=== PATIENT | female | born 1945 | race Caucasian/White ===

== ENCOUNTER 2017-01-28 10:54 | Emergency (ER) | payer MEDICARE, OTHER ==
[~2017-01-28] VITALS: Ht 162.6 cm; Wt 70.0 kg
[~2017-01-28 10:54] MED LIST: LOSA100T PO; METF500T PO; REST0.05 EACH EYE
[2017-01-28 10:56] VITALS: BP 188/80; PULSE 92; RESP 20; TEMP 97.8; O2SAT 99
--- NOTE | 2017-01-28 11:18 | PD ---
Physical Exam Date Seen by Provider: Jan 28, 2017 Time Seen by Provider: 11:13 Narrative 71 Y/O female with Left Knee Pain for 2 weeks[address] Currently scheduled with Dr. Barber at the end of the month. Patient fell 3 weeks ago which started symptoms. Patient now having pain in calf and swelling behind knee into foot. Admits to Knee locking up. Patient was told she could not see anyone else sooner than the end of the month. Pain is worse with weight bearing. Pain 4/ 10 at rest. 9/10 with weight bearing. V/S Stable. Patient awaiting bed placement. Data Data Last Documented VS Vital Signs Date Time Temp Pulse Resp B/P Pulse Ox O2 Delivery O2 Flow Rate FiO2 01/28/17 10:56 97.8 92 20 188/80 99 Room Air [facility] Medical Record Reviewed: Yes Supervised Visit with KURT: Yes Condition: Stable Wm Garay Jan 28, 2017 11:18
--- NOTE | 2017-01-28 13:13 | PD ---
HPI Chief Complaint: Pain: Acute or Chronic Time Seen by Provider: 13:05 Travel History International Travel<30 days: No Contact w/Intl Traveler<30days: No Traveled to known affect area: No History of Present Illness HPI 71-year-old female presents for evaluation of left leg pain. She reports that 3 weeks ago she tripped on some landscaping material and fell, landing on her right knee. She started to develop some pain in the posterior left calf/knee region since then which has been progressively getting worse. Pain is an aching pain that is worse when walking. Ibuprofen, ice pack seemed to help some with the pain. She made an appointment with orthopedist Dr. Claros however she was unable to get an appointment until the end of January and so she came here for evaluation. Denies any numbness/tingling/weakness, recent travel , recent surgery, history of DVT. She has no other complaints. 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)) Cardiovascular Problems: No Diabetes: Yes Endocrine: No Genitourinary: No Hepatitis: Yes (C) Hiatal Hernia: No Immune Disorder: No Musculoskeletal: Yes (ROTATOR CUFF PROBLEM) Neurologic: No Psychiatric: No Reproductive: Yes (H.P.B.) Respiratory: No Thyroid Disease: No Past Surgical History Abdominal Surgery: Yes (HYSTERECTOMY) AICD: No Eye Surgery: Yes (CATARACT REMOVAL) Gynecologic Surgery: Yes Joint Replacement: No Pacemaker: No Social History Tobacco Use: No Allergies-Medications (Allergen,Severity, Reaction): Coded Allergies: Darvocet-N 100 (Verified Allergy, Severe, Rash, 01/28/17) Sulfa (Unverified Allergy, Severe, SHORT OF BREATH, 01/28/17) Antifungal Antibiotics (Unverified Allergy, Intermediate, RASH, 01/28/17) Reported Meds & Prescriptions Reported Meds & Active Scripts Active Tramadol (Tramadol HCl) 50 Mg Tab 50 Mg PO Q6H PRN Restasis Opth 0.05% (Cyclosporine Opth 0.05%) 0.05% Emul 1 Drop EACH EYE BID Reported Metformin (Metformin HCl) 500 Mg Tab 500 Mg PO BIDPC With meals Losartan (Losartan Potassium) 100 Mg Tab 100 Mg PO DAILY Review of Systems Except as stated in HPI: all other systems reviewed are Neg Physical Exam Narrative GENERAL: Well-developed well-nourished female in no acute distress SKIN: Warm and dry. No bruising or soft tissue swelling HEAD: Atraumatic. Normocephalic. EYES: Pupils equal and round. No scleral icterus. No injection or drainage. ENT: No nasal bleeding or discharge. Mucous membranes pink and moist. NECK: Trachea midline. No JVD. CARDIOVASCULAR: Regular rate and rhythm. No murmur appreciated. RESPIRATORY: No accessory muscle use. Clear to auscultation. Breath sounds equal bilaterally. GASTROINTESTINAL: Abdomen soft, non-tender, nondistended. MUSCULOSKELETAL: No obvious deformities. There is no lower extremity tibial/ pedal edema. There is some tenderness to palpation to the posterior proximal left calf region. The Achilles tendon is intact and nontender. The patient intends full range of motion at the hips, knees, ankles bilaterally. There is no left knee effusion. 2+ dorsalis pedis and posterior tibial pulses bilaterally. NEUROLOGICAL: Awake and alert. No obvious cranial nerve deficits. Motor grossly within normal limits. Normal speech. Data Data Last Documented VS Vital Signs Date Time Temp Pulse Resp B/P Pulse Ox O2 Delivery O2 Flow Rate FiO2 01/28/17 10:56 97.8 92 20 188/80 99 Room Air Orders Tibia/Fibula (Ap/Lat) (01/28/17 ) Us Leg Venous Doppler (01/28/17 13:12) Ketorolac Inj (Toradol Inj) (01/28/17 13:15) MDM Medical Decision Making Medical Screen Exam Complete: Yes Emergency Medical Condition: Yes Medical Record Reviewed: Yes Differential Diagnosis Calf strain, tear, DVT, ligamentous disruption, meniscal disruption, proximal fibular fracture Narrative Course This is a 71-year-old female who fell 3 weeks ago and has had progressive pain in her left calf region since then. Examination reveals some tenderness to palpation of the posterior proximal left calf, examination is otherwise unremarkable. Plan is for Doppler ultrasound. She was given a Toradol injection. X-ray imaging reveals no acute abnormalities. Ultrasound reveals no DVT, there is a Santiago cyst in the posterior left knee. This could be causing some discomfort, this would not be consistent with traumatic injury however. Lantus to discharged short course of tramadol for pain control. Likely she has left calf strain. Stable for discharge. Diagnosis Primary Impression: Muscle strain of left lower leg Qualified Code: S86.912A - Muscle strain of left lower leg, initial encounter Additional Impression: Bakers cyst Qualified Code: M71.22 - Bakers cyst, left Additional Instructions: Ice pack as needed. Into the ibuprofen as needed. Tramadol for breakthrough pain. Follow-up with orthopedist if symptoms persist. Return for any emergent medical conditions.. Med/Other Pt SpecificInfo: Prescription(s) given Scripts Tramadol 50 Mg Tab50 Mg PO Q6H PRN (PAIN) #20 TAB Ref 0 Prov:Bala Bae MD 01/28/17 Disposition: 01 DISCHARGE HOME Condition: Stable Tl Linn Jan 28, 2017 13:13
[2017-01-28] MEDS ORDERED: KETOROLAC TROMETHAMINE 60 MG/2 ML (IM) VIAL IM ONE (13:15)
--- NOTE | 2017-01-28 14:14 | RADRPT ---
EXAM DATE/TIME: 01/28/2017 13:27 [facility] COMPARISON: No previous studies available for comparison. INDICATIONS : Left leg pain and swelling. MEDICAL HISTORY : Hypertension. Hepatitis C. Peripheral neuropathy. SURGICAL HISTORY : Hysterectomy. ENCOUNTER: Initial ACUITY: 3 days PAIN SCORE: 3/10 LOCATION: Left leg. TECHNIQUE: Venous ultrasound of the leg was performed from the inguinal ligament to the proximal calf. Real-beto e, color Doppler and spectral tracing, compression and augmentation techniques were used. FINDINGS: There is normal compressibility of the deep venous system from the inguinal region to the proximal ca lf. No echogenic clot is seen in the lumen of the common femoral, femoral, popliteal, and posterior tibial veins. There is a normal response of the venous system to proximal and distal augmentation an d respiration. CONCLUSION: 1. No evidence of left lower extremity DVT. 2. 3 x 2 x 1 cm cystic area in the popliteal fossa likely represents a Santiago' cyst. Kaushik Hanley MD on January 28, 2017 at 14:12 Board Certified Radiologist. This report was verified electronically.
--- NOTE | 2017-01-28 14:21 | RADRPT ---
EXAM DATE/TIME: 01/28/2017 13:42 [facility] COMPARISON: No previous studies available for comparison. INDICATIONS : Lower leg pain. No known injury. MEDICAL HISTORY : None. SURGICAL HISTORY : None. ENCOUNTER: Initial ACUITY: 3 weeks PAIN SCORE: 4/10 LOCATION: Left tibia/fibula. FINDINGS: 2 views left tibia and fibula. Bone alignment within normal limits. No evidence of fracture. No abno rmal periosteal reaction or bone erosion. CONCLUSION: No evidence of fracture. Kaushik Hanley MD on January 28, 2017 at 14:18 Board Certified Radiologist. This report was verified electronically.
[2017-01-28] MEDS ORDERED: TRAM50TA PO (14:26)
[2017-01-28 14:34] VITALS: RESP 18
== END 2017-01-28 15:14 | disposition home or self-care (01) ==
LOC: NEPD 10:54
DX: S86.912A Strain of unspecified muscle(s) and tendon(s) at lower leg level, left leg, initial encounter (principal); M71.22 Synovial cyst of popliteal space [Baker], left knee; E11.9 Type 2 diabetes mellitus without complications; M79.662 Pain in left lower leg; R60.0 Localized edema
CPT/HCPCS: 73590; 93971; 96372; 99284; J1885